=== PATIENT | male | born 1950 | race Two or more races ===

== ENCOUNTER 2019-07-26 13:21 | Outpatient (CLI) | payer OTHER | END 2019-07-26 14:11 | disposition home or self-care (01) | LOC: SONOGRAMA 13:21 | DX: M75.101 Unspecified rotator cuff tear or rupture of right shoulder, not specified as traumatic (principal) ==

== ENCOUNTER 2019-09-11 13:22 | Outpatient (CLI) | payer OTHER | END 2019-09-11 13:33 | disposition home or self-care (01) | LOC: MRI 13:22 | DX: M54.12 Radiculopathy, cervical region (principal) | CPT/HCPCS: 72141 ==

== ENCOUNTER → 2020-07-05 | Outpatient (CLI) | payer OTHER | END | disposition home or self-care (01) | LOC: LAB 14:59 | PROVIDERS: ATTEND Radiology Diagnostic Radiology | DX: N20.0 Calculus of kidney (principal) ==

== ENCOUNTER 2020-07-10 09:38 | Outpatient (CLI) | payer OTHER | END 2020-07-10 09:51 | disposition home or self-care (01) | LOC: TOM 09:38 | PROVIDERS: ATTEND Internal Medicine Hepatology | DX: R10.32 Left lower quadrant pain (principal) ==